=== PATIENT | male | born 1970 | race Caucasian/White ===

== ENCOUNTER 2023-06-19 07:48 | Outpatient (CLI) | payer OTHER, SELFPAY | END 2023-06-19 07:49 | disposition home or self-care (01) | LOC: RT 07:48 | PROVIDERS: Visit Provider Hospitalist | DX: R07.9 Chest pain, unspecified (principal) | CPT/HCPCS: 94010; 94726; 94729 ==

== ENCOUNTER 2024-07-30 15:00 | Outpatient (CLI) | payer OTHER, SELFPAY ==
--- NOTE | 2024-07-30 15:05 | MR_ITS ---
WS: [id number] MRI LEFT KNEE HISTORY: LEFT KNEE PAIN COMPARISON: None available. Anterior cruciate ligament: Intact. Posterior cruciate ligament: Intact. Medial collateral ligament: Slight displacement of the medial and lateral collateral ligament from the joint line secondary to meniscal extrusion. Posterior lateral corner structures: Intact. Medial menisci: Horizontal tear posterior horn extends to the inferior articular surface. Tear extends to the peripheral margin and superiorly from the joint line. Small amount of edema in the posterior capsule surrounding the meniscus. Mild extrusion of the anterior horn from the joint line. There is additional focal signal in the free edge of the posterior horn which can be seen with a radial tear. Lateral meniscus: Intact. Normal signal, size and shape. Extensor mechanism: Distal quadriceps tendon and patellar tendons are intact. Fluid and soft tissue: No joint effusion. Small Carter's cyst. Osseous and articular structures: Patellofemoral compartment: Well preserved. No subluxation. Very superficial defects within the cartilage near the patellar eminence and lateral facet. Medial compartment: Minimal narrowing. 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 Full-thickness signal abnormality towards the intercondylar notch. There is no marrow edema. Lateral compartment: Mild narrowing with mild chondromalacia. MR/MR knee LT wo con* [id number] IMPRESSION: 1. Horizontal tear posterior horn medial meniscus extends to the inferior gustavo cular surface. Horizontal tear extends posteriorly to the capsule and just abov e the joint line. Suspect additional radial tear at the free edge. 2. Pericapsular edema at the junction of the posterior horn medial meniscus wi th the capsule. Suspect meniscocapsular injury. 3. No ACL tear. 4. 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 5. Minimal chondromalacia at the patellofemoral and lateral compartment.
--- NOTE | 2024-07-30 15:05 | MR_ITS ---
WS: [id number] MRI RIGHT KNEE HISTORY: R KNEE PAIN COMPARISON: None available. Anterior cruciate ligament: Moderate thinning of the ACL. There is a small amount of edema surrounding the ACL. Partial chronic tear suspected. There is slight deviation of the ACL which is probably related to scarring. Posterior cruciate ligament: Intact. Medial collateral ligament: Displacement from the joint line by slightly extruded meniscus. Posterior lateral corner structures: Intact. Medial menisci: Full-thickness tear near the free edge posterior horn extends to both the inferior and superior articular surfaces. Lateral meniscus: Intact. Normal signal, size and shape. Extensor mechanism: Distal quadriceps tendon and patellar tendons are intact. Fluid and soft tissue: No joint effusion. There is mixed signal posterior to the medial femoral condyle. Areas of increased signal and decreased signal on the T2 weighted sequences. This may be a complex Carter's cyst. Slightly higher position than typically noted for a Carter's cyst. Complex ganglion may appear similar. Small low signal bodies are present which may be calcifications. Osseous and articular structures: Patellofemoral compartment: Mild medial compartment chondromalacia. No marrow edema. Medial compartment: Mild narrowing with diffuse thinning and fissuring of the cartilage. There is a more focal defect in the medial femoral condyle. This is contiguous with the meniscal tear. Due to the orientation of this cartilage defect may be an area of delamination. Single subchondral cystic change in the anterior, nonweightbearing surface of the femoral condyle. Lateral compartment: Mild narrowing and mild thinning of the cartilage. No marrow edema. MR/MR knee RT wo con* [id number] IMPRESSION: 1. Moderate chronic thinning of the ACL. Suspect remote partial tear. Slight d eviation of the ACL is likely due to to scar formation. 2. Full-thickness tear posterior horn medial meniscus. Tear extends to both th e inferior and superior articular surfaces. 3. Mixed signal posterior to the femoral condyle. This may be a complex Carter' s cyst or ganglion. 4. Mild narrowing of the medial compartment with thinning and fissuring of the cartilage. More focal defect along the medial femoral condyle. Orientation of the cartilage defect may be an early beginning area of delamination. Oblique si gnal abnormality does not quite extend to the cortical surface. 5. Mild narrowing chondromalacia lateral compartment.
== END 2024-07-30 15:01 | disposition home or self-care (01) ==
PROVIDERS: PCP Nurse Practitioner Family; Visit Provider Nurse Practitioner Family
DX: S83.242A Other tear of medial meniscus, current injury, left knee, initial encounter (principal); X58.XXXA Exposure to other specified factors, initial encounter; R93.6 Abnormal findings on diagnostic imaging of limbs; M94.261 Chondromalacia, right knee; M94.262 Chondromalacia, left knee; M71.22 Synovial cyst of popliteal space [Baker], left knee
CPT/HCPCS: 73721

== ENCOUNTER → 2024-08-12 13:57 | Outpatient (BNVA) | payer OTHER, SELFPAY | PROVIDERS: PCP Nurse Practitioner Family; Visit Provider Podiatrist Foot & Ankle Surgery | DX: M79.671 Pain in right foot (principal); M79.672 Pain in left foot; M77.41 Metatarsalgia, right foot; M77.42 Metatarsalgia, left foot; M20.11 Hallux valgus (acquired), right foot; M21.611 Bunion of right foot | CPT/HCPCS: 73630; 99204 ==

== ENCOUNTER → 2024-08-18 13:53 | Outpatient (BNVA) | payer OTHER, SELFPAY | PROVIDERS: PCP Nurse Practitioner Family; Visit Provider Specialist | DX: M17.0 Bilateral primary osteoarthritis of knee (principal) | CPT/HCPCS: 20610; 73560; 73565; 99205; J7326 ==

== ENCOUNTER → 2024-10-14 14:18 | Outpatient (BNVA) | payer OTHER, SELFPAY | PROVIDERS: PCP Family Medicine; Visit Provider Podiatrist Foot & Ankle Surgery | DX: M77.41 Metatarsalgia, right foot (principal); M77.42 Metatarsalgia, left foot; M20.11 Hallux valgus (acquired), right foot; M21.611 Bunion of right foot | CPT/HCPCS: 99213 ==

== ENCOUNTER 2024-10-21 05:00 | Outpatient (RCR) | payer OTHER, SELFPAY | END 2024-11-20 23:59 | disposition home or self-care (01) | LOC: MPT 05:00 | PROVIDERS: Visit Provider Podiatrist Foot & Ankle Surgery | DX: M79.671 Pain in right foot (principal); M79.672 Pain in left foot | CPT/HCPCS: 97110; 97140; 97162 ==

== ENCOUNTER 2024-11-21 05:00 | Outpatient (RCR) | payer OTHER, SELFPAY | END 2024-12-21 23:59 | disposition home or self-care (01) | LOC: MPT 05:00 | PROVIDERS: Visit Provider Podiatrist Foot & Ankle Surgery | DX: M79.671 Pain in right foot (principal); M79.672 Pain in left foot | CPT/HCPCS: 97110 ==

== ENCOUNTER 2025-02-17 07:14 | Outpatient (CLI) | payer OTHER, SELFPAY ==
--- NOTE | 2025-02-17 07:17 | CT_ITS ---
WS: [id number] CT HEAD NONCONTRAST HISTORY: MEMORY LOSS/HEADACHES TECHNIQUE: Contiguous axial imaging performed through the brain. Bone and soft tissue windows. Sagittal and coronal reformats reviewed. All CT scans at [facility] [place] use at least one of these dose optimization techniques: automated exposure control; mA and/or kV adjustment per patient size (includes targeted exams where dose is matched to clinical indication); or iterative reconstruction. DLP: 1196.18 mGy.cm COMPARISON: None available. Tiny focus of increased density in the LEFT centrum semiovale. Suspect this is a small amount of calcium. Tiny focus of blood may appear similar. No significant atrophy and minimal small vessel disease. No atrophy or prior infarcts or herniation. Ventricles: Normal size with no hydrocephalus. Paranasal sinuses: As visualized are clear. Mastoid air cells: Well pneumatized. Calvarium and scalp: Skull is intact with no soft tissue edema or swelling. CT/CT head wo con* [id number] IMPRESSION: 1. Tiny focus of increased density in the LEFT centrum semiovale. Favor this i s a calcific deposit. Blood may appear similar. Consider follow-up noncontrast head CT in 5 to 7 days to evaluate for any interval change. 2. No significant atrophy. Minimal small vessel disease.
== END 2025-02-17 07:15 | disposition home or self-care (01) ==
LOC: RAD 07:15
PROVIDERS: PCP Family Medicine Geriatric Medicine; Visit Provider Family Medicine Geriatric Medicine
DX: Z01.89 Encounter for other specified special examinations (principal)
CPT/HCPCS: 70450

== ENCOUNTER → 2025-02-19 14:20 | Outpatient (BNVA) | payer OTHER, SELFPAY | PROVIDERS: PCP Family Medicine Geriatric Medicine; Visit Provider Podiatrist Foot & Ankle Surgery | DX: M20.11 Hallux valgus (acquired), right foot (principal); M21.611 Bunion of right foot; M77.41 Metatarsalgia, right foot; M77.42 Metatarsalgia, left foot | CPT/HCPCS: 99213 ==

== ENCOUNTER → 2025-02-20 09:08 | Outpatient (BNVA) | payer OTHER, SELFPAY | PROVIDERS: PCP Family Medicine Geriatric Medicine; Visit Provider Specialist | DX: M17.0 Bilateral primary osteoarthritis of knee (principal) | CPT/HCPCS: 20610; J7326 ==

== ENCOUNTER 2025-03-16 15:32 | Outpatient (CLI) | payer OTHER, SELFPAY ==
--- NOTE | 2025-03-16 15:57 | CTR_ITS ---
PROCEDURE INFORMATION: Exam: CT Head Without Contrast Exam date and time: 03/16/2025 4:05 PM Age: 55 years old Clinical indication: Abnormal findings; Abnormal radiologic findings of head/skull; Not specified; . Tiny focus of increased density in the left centrum semiovale. Favor this is a calcific deposit. ; Additional info: Abnormal CT head TECHNIQUE: Imaging protocol: Computed tomography of the head without contrast. Radiation optimization: All CT scans at this facility use at least one of these dose optimization techniques: automated exposure control; mA and/or kV adjustment per patient size (includes targeted exams where dose is matched to clinical indication); or iterative reconstruction. COMPARISON: CT head wo con* [id number] 02/17/2025 7:24 AM RADIATION DOSE METRICS: Total DLP (mGy-cm): 1135.48 FINDINGS: Brain: Tiny hyperdensity left centrum semiovale white matter, stable. No acute infarction. No mass. No hemorrhage. No edema. Ventricles: No hydrocephalus or evidence of increased intracranial pressure. Paranasal sinuses: Visualized sinuses are unremarkable. No fluid levels. Mastoid air cells: Visualized mastoid air cells are well aerated. Bones: Unremarkable. No acute fracture. Soft tissues: Unremarkable. CT/CT head wo con* [id number] IMPRESSION: Tiny hyperdensity left centrum semiovale white matter, stable. This likely represents a small nonspecific calcific deposit.
== END 2025-03-16 15:33 | disposition home or self-care (01) ==
LOC: RAD 15:33
PROVIDERS: PCP Family Medicine Geriatric Medicine; Visit Provider Family Medicine Geriatric Medicine
DX: R93.0 Abnormal findings on diagnostic imaging of skull and head, not elsewhere classified (principal); R94.02 Abnormal brain scan
CPT/HCPCS: 70450